=== PATIENT | female | born 1975 | race Asian ===

== ENCOUNTER 2018-05-09 18:44 | Emergency (ER) | payer BC ==
[~2018-05-09] VITALS: Wt 93.9 kg
[2018-05-09] MEDS ORDERED: IBUP-1542 PO (23:32)
[2018-05-09] MEDS ORDERED: HYDR-4011 PO (23:32)
--- NOTE | 2018-05-09 23:42 | ERD ---
ER Documentation Chief Complaint Chief Complaint KNEE PAIN/ SWELLING X'S 2 WEEKS HPI 42-year-old female presents with history of left knee pain and intermittent swelling for last 2 weeks. States that when she walks she feels a clicking sensation but denies any history of trauma to the knee. The pain is worse going up and down stairs as well as getting up from squatting position not taking any treatments. Denies any fevers chills, nausea, vomiting, diarrhea, numbness, tingling, impaired range of motion. Denies past medical history. Denies allergies. Denies medications. Denies surgeries. Denies alcohol, tobacco, drug use. Up to date on vaccines. ROS All systems reviewed and are negative except as per history of present illness. Medications Home Meds Active Scripts Hydrocodone/Acetaminophen (Roodhouse 5-325 Tablet) 1 Each Tablet, 1 TAB PO Q6H PRN for PAIN, #14 TAB Prov:NEHA HURT 05/09/18 Ibuprofen* (Motrin*) 600 Mg Tab, 600 MG PO Q6 for pain, #30 TAB Prov:NEHA HURT 05/09/18 Allergies Allergies: Coded Allergies: Penicillins (Verified Allergy, Mild, rash, 05/09/18) PMhx/Soc Medical and Surgical Hx: pt denies Medical Hx, pt denies Surgical Hx Hx Alcohol Use: Yes (socially) Hx Substance Use: No Hx Tobacco Use: Yes Smoking Status: Former smoker FmHx Family History: No diabetes, No coronary disease, No other Physical Exam Vitals Vital Signs Date Temp Pulse Resp B/P (MAP) Pulse Ox O2 O2 Flow FiO2 Time Delivery Rate 05/09/18 98.2 89 17 133/92 96 Room Air 23:45 (106) 05/09/18 97.8 102 18 127/76 99 19:21 (93) Physical Exam Const: No acute distress Head: Atraumatic Eyes: Normal Conjunctiva ENT: Normal External Ears, Nose and Mouth. Resp: Clear to auscultation bilaterally Cardio: Regular rate and rhythm, no murmurs Ext: Left knee is nonerythematous, edematous, no ecchymosis noted. Full range of motion. There is moderate tenderness to palpation on the medial aspect of the left of the patellar. Distal pulses and cap refill normal. No cyanosis, or edema Neur: Awake and alert Psych: Normal Mood and Affect Procedures/MDM 42-year-old female presents with history of left knee pain and intermittent swelling for last 2 weeks. States that when she walks she feels a clicking sensation but denies any history of trauma to the knee. The pain is worse going up and down stairs as well as getting up from squatting position not taking any treatments. Denies any fevers chills, nausea, vomiting, diarrhea, numbness, tingling, impaired range of motion. Knee exam is normal aside from some slight tender to palpation in the left on the medial aspect of the left patellar. There is no edema or erythema therefore my septic bursitis or other infection is very low. Also low suspicion for any kind of neurovascular compromise. I told the patient that it sounds like she may have patellofemoral syndrome versus torn meniscus and both of these conditions need to be managed on outpatient basis with Ortho and physical therapy. I gave patient the number to set [facility] I told her to follow-up with them regarding treating underlying condition. Patient understood and agreed to do so. Patient given Rx for ibuprofen and short course of Roodhouse. Cures was run without any history. Patient discharged with strict ER precautions. Patient advised to follow up with PMD. All questions answered at discharge. Departure Diagnosis: Primary Impression: Knee pain Chronicity: acute Laterality: left Qualified Codes: M25.562 - Pain in left knee Condition: Stable Patient Instructions: Knee Pain, Uncertain Cause Referrals: [facility] Hours: Tue-Tue 9:00 AM - 5:00 PM Additional Instructions: FOLLOW UP WITH YOUR PRIMARY CARE PHYSICIAN TOMORROW.Return to this facility if you are not improving as expected. NEHA HURT May 09, 2018 23:42
[2018-05-09 23:45] VITALS: BP 133/92; PULSE 89; RESP 17
== END 2018-05-09 23:45 | disposition home or self-care (01) ==
LOC: FTE 18:44
DX: M25.562 Pain in left knee (principal); Z87.891 Personal history of nicotine dependence
CPT/HCPCS: 99283